=== PATIENT | male | born 1975 | race Caucasian/White ===

== ENCOUNTER 2021-04-15 06:33 | Emergency (ER) | payer OTHER, SELFPAY ==
--- NOTE | ~2021-04-15 | XR_ITS ---
EXAMINATION: XR abdomen/kub 1V EXAM DATE: 04/15/2021 07:37 INDICATION: Constipation, abdominal pain. TECHNIQUE: Frontal projection of the upper abdomen, frontal projection lower abdomen/pelvis for inter pretation. There is no prior study for comparison. FINDINGS: There is expected amount of colonic stool and gas. No small bowel dilation, nonobstructiv e bowel gas pattern. There are no suspicious calcifications identified. There is no organomegaly suspected. The bones are unremarkable. Lung bases unremarkable. IMPRESSION: Unremarkable abdomen x-ray exam. Reviewed, dictated and finalized at location A. NDER BATCHER
--- NOTE | ~2021-04-15 | CT_ITS ---
EXAMINATION: CT abdomen pelvis w con DATE: 04/15/2021 08:54 INDICATION: Left lower quadrant abdominal pain. TECHNIQUE: Computed tomography (CT) of the abdomen and pelvis was performed with 100 mL Omnipaque 350 intravenous contrast. Automated exposure control and iterative reconstruction technique were employe d. The dose-length product was 1150.24 mGy-cm. COMPARISON: None. FINDINGS: The visualized portions of the lung bases are clear without pneumonia or pleural effusion. The heart size is normal. There are coronary artery calcifications. No pericardial effusion. The live r, gallbladder, spleen, pancreas, adrenal glands, and right kidney are normal. There is mild left hyd ronephrosis and hydroureter. There is a 3 mm stone in distal left ureter. There is a left inguinal he rnia containing fat. The prostate is mildly enlarged. There is diverticulosis of the colon without ev idence of diverticulitis. The appendix is normal. There are no dilated loops of bowel. There are no p athologically enlarged lymph nodes. There is no free intraperitoneal fluid. There is mild chronic ant erior wedging of multiple thoracic vertebral bodies. There is mild thoracolumbar spondylosis. IMPRESSION: 1. 3 mm stone in distal left ureter with mild left hydronephrosis and hydroureter. 2. Left inguinal hernia containing fat. Reviewed, dictated and finalized at location B. [employer] PHOTOGRAPH INTERPRETER IMPRESSION: 1. 3 mm stone in distal left ureter with mild left hydronephrosis and hydrouret er. 2. Left inguinal hernia containing fat.
[2021-04-15 06:54] VITALS: BP 160/101; PULSE 73; RESP 18; TEMP 36.5; O2SAT 98
[2021-04-15 08:02] VITALS: BP 160/98; PULSE 79; RESP 18; O2SAT 98
[2021-04-15 08:06] LABS: Basophils Absolute Auto 0.1 K/mm3 (0.0-0.1); Basophils Percent Auto 0.6 % (0.2-1.2); Eosinophils Absolute Auto 0.3 K/mm3 (0-0.3); Eosinophils Percent Auto 2.4 % (0-4.4); Hemoglobin 15.6 g/dL (14.0-18.0); Immature Granulocyte Absolute 0.03 K/mm3 (0.00-0.031); Immature Granulocyte Percent A 0.3 % (0-0.5); Lymphocytes Absolute Auto 3.05 K/mm3 (0.9-3.2); Lymphocytes Percent Auto 28.3 % (18.3-44.2); Mean Corpuscular HGB Conc 34.7 g/dl (32-36); Mean Corpuscular Volume 89.5 fl (80-100); Mean Platelet Volume 10.7 fl (7.4-10.4); Monocytes Absolute Auto 0.8 K/mm3 (0.1-0.6); Monocytes Percent Auto 7.3 % (2.6-8.5); Neutrophils Absolute Auto 6.6 K/mm3 (1.3-6.7); Neutrophils Percent Auto 61.1 % (45.5-73.1); Platelet Count Result 194 k/mm3 (150-375); Red Blood Count 5.03 M/mm3 (4.6-6.20); Red Cell Distribution Width 12.7 % (11.5-14.5); White Blood Count 10.8 K/mm3 (4.5-10.0)
[2021-04-15 08:13] LABS: Alanine Aminotransferase 20 U/L (4-50); Albumin Level 4.5 g/dL (3.5-5.1); Alkaline Phosphatase 77 U/L (38-126); Anion Gap 9 mmol/L (8-16); Aspartate Amino Transferase 24 U/L (17-59); Bilirubin,Total 0.6 mg/dL (0.2-1.3); Blood Urea Nitrogen 17 mg/dL (9-20); Calcium 9.2 mg/dL (8.4-10.2); Carbon Dioxide 25 mmol/L (22-30); Chloride 108 mmol/L (98-107); Estimated CRCL calculation 89 ml/min; Estimated Glomerular Filt Rate > 60; Glucose 114 mg/dL (65-110); Potassium 3.7 mmol/L (3.4-5.0); Sodium 142 mmol/L (137-145)
[2021-04-15] MEDS: KETOROLAC 15 MG/ML VIAL (*BKC) IV PUSH (09:32)
--- NOTE | 2021-04-15 10:01 | ED.ABDPAIN ---
HPI - Abdominal Pain General Chief Complaint: Abdominal Pain Stated Complaint: trouble urinating, constipation Time Seen by Provider: 04/15/21 07:05 Source: patient and family Mode of arrival: ambulatory Limitations: no limitations History of Present Illness HPI narrative: 45-year-old with a history of hypothyroidism, hyperlipidemia here with complaints of feeling constipated and having problem urinating since last 4 days. He denies any nausea or vomiting. Denies any blood in the urine. He states he has been having intermittent small bowel movements.. No history of diverticulosis or diverticulitis or kidney stones. MD elicited complaint: abdominal pain Pertinent past history: constipation Onset (ago): day(s) (4) Pain Consistency: intermittent Location: LLQ Severity: moderate Quality: cramping Migration to: no migration Related Data Allergies Allergy/AdvReac Type Severity Reaction Status Date / Time No Known Allergies Allergy Verified 10/22/20 11:26 Review of Systems Review of Systems: All systems reviewed & are unremarkable except as noted in HPI and below Constitutional: Constitutional: Reports no additional constitutional complaints Eyes: Eyes: Reports no additional eye complaints ENT: Reports system reviewed and no additional complaints, except as documented Cardiovascular: Cardiovascular: Reports no additional cardiovascular complaints Respiratory: Respiratory: Reports no additional respiratory complaints Gastrointestinal: Gastrointestinal: Reports as per HPI Genitourinary: Genitourinary: Reports as per HPI Musculoskeletal: Musculoskeletal: Reports no additional musculoskeletal complaints Neurologic: Reports system reviewed and no additional complaints, except as documented [facility] Family History Family History Father Patient's father is , Onset Age: 71 Social History Social History Smoking packs per day: 0.50 Smoking cigarettes per day: 10.0 Years smoked: 20 Smoking pack-years: 10.00 Smoking status: Current every day smoker Tobacco type: cigarettes (under a pack half pack to 15 cigarettes a day. ) Alcohol intake: never Substance use: unknown Exam Narrative: GENERAL: Well-appearing, well-nourished, and in no acute distress. HEAD: Normocephalic, atraumatic. EYES: PERRLA and EOMI. NECK: Supple. CHEST: Clear to auscultation. No respiratory distress. HEART: Regular rate and rhythm. No murmur heard. Normal peripheral pulses. ABDOMEN: Soft, nontender, nondistended, normal active bowel sounds. EXTREMITIES: Normal range of motion. No edema. SKIN: Warm, dry, no rash. NEURO: No focal deficits. Alert and oriented x3. PSYCH: Normal mood and affect. Course Course Emergency Course: Patient in no acute distress informed him about his lab work, CT findings. Advised him to drink plenty of fluids feels comfortable going home. Vital Signs Vital signs: Vital Signs Temperature 36.5 C 04/15/21 06:54 Pulse Rate 73 04/15/21 06:54 Respiratory Rate 18 04/15/21 06:54 Blood Pressure 160/101 H 04/15/21 06:54 Pulse Oximetry 98 04/15/21 06:54 Temperature 36.5 C 04/15/21 06:54 Pulse Rate 79 04/15/21 08:02 Respiratory Rate 18 04/15/21 08:02 Blood Pressure 160/98 H 04/15/21 08:02 Pulse Oximetry 98 04/15/21 08:02 MDM - Abdominal Pain MDM Narrative Medical decision making narrative: With a history of constipation and intermittent bowel movements now having left lower quadrant pain will do a CT of the abdomen to make sure he has no diverticulitis. Has very minimal pain at this time I will give him IV Toradol. Differential Diagnosis Differential diagnosis: Likely constipation, diverticulitis and small bowel obstruction Lab Data Result diagrams: 04/15/21 07:49 04/15/21 07:49 Labs: Lab Results 04/15/21 04/15/21
[2021-04-15 10:10] VITALS: BP 149/85; PULSE 53; RESP 18; O2SAT 99
== END 2021-04-15 10:10 | disposition home or self-care (01) ==
PROVIDERS: Emergency Provider Family Medicine; PCP Internal Medicine
DX: N13.2 Hydronephrosis with renal and ureteral calculous obstruction (principal); F17.210 Nicotine dependence, cigarettes, uncomplicated; K40.90 Unilateral inguinal hernia, without obstruction or gangrene, not specified as recurrent
CPT/HCPCS: 36415; 74018; 74177; 80053; 85025; 96374; 99284; J1885; Q9967